=== PATIENT | female | born 1950 | race Asian ===

== ENCOUNTER 2016-06-13 07:22 | Day surgery (SDC) | payer MEDICARE, OTHER ==
[~2016-06-13] VITALS: Ht 154.9 cm; Wt 48.1 kg
[~2016-06-13 07:22] MED LIST: 0.9% Sodium Chloride 1,000 ML IV SCH; Sodium Chloride LOK Flush 10 mL Syringe IV PRN; fentaNYL-PF 50 mCg/mL 2 mL Inj IVPUSH PRN
[2016-06-13 07:49] VITALS: BP 144/99; PULSE 81; RESP 14; O2SAT 100
[2016-06-13] MEDS ORDERED: CALC-762 PO (07:54)
[2016-06-13] MEDS ORDERED: SUMA5SPR NS (07:54)
[2016-06-13] MEDS ORDERED: ASPI-973 PO (07:54)
[2016-06-13] MEDS ORDERED: ALEN10TA5 PO (07:54)
[2016-06-13] MEDS ORDERED: AMT50T PO (07:54)
[2016-06-13] MEDS ORDERED: MULT-666 PO (07:54)
[2016-06-13 09:00] VITALS: BP 140/92; PULSE 68; RESP 16; O2SAT 100
--- NOTE | 2016-06-13 09:00 | PCM.ENDCOL ---
Colonoscopy Date of Service: Jun 13, 2016 Physician Chele Colbert MD Pre Procedure Diagnosis: Screening Post Procedure Dx & Findings: Hemorrhoids diverticuli Procedure Colonoscopy PROCEDURE IN DETAIL: Prep adequate Withdrawal time 9 minutes After unremarkable rectal examination the Olympus video colonoscope was inserted patient's anal canal and was advanced to cecum. Landmarks were identified including the ileocecal valve and appendiceal orifice. Scope was withdrawn systematically. Visualized colonic mucosa showed healthy shiny mucosa with normal healthy-appearing vasculature. Patient had multiple diverticula in the sigmoid and the right colon. There were isolated diverticula in between. Sizes were small to large. In the rectum retroflexion was done which showed hemorrhoids. Anal canal was inspected carefully on the way out and hemorrhoids noted. Impression Diverticuliti Hemorrhoids Recommendation Repeat colonoscopy in 10 years if there is no family or personal history of colon polyp or cancer. Diverticular diet Presedation Assessment Risks and Benefits Informed consent was obtained from the patient after all risks and benefits including but not limited to drug reaction, infection, pain, bleeding, perforation, as well as alternatives were discussed. Patient monitoring Continuous pulse oximetry, cardiac monitoring, blood pressure monitoring, IV access, and oxygen at 2L per nasal cannula. Periprocedural Fentanyl: Fentanyl 75mcg Incrementally Midazolam: Midazolam 3mg Incrementally Complications There were no periprocedural complications identified. Post Procedure Plan Post Procedure Recommendations 1. Restrict activities today. 2. Resume normal activities in the morning. 3. Resume medications. 4. Patient informed of normal post procedure side effects as bloating, drowsiness, blood streaking in the stool. 5. average risk CRCS. If colon polyps come back as: -Hyperplastic- can repeat colonoscopy in 10 years -Tubular adenoma- repeat colonoscopy in 5 years -Tubulovillous/villous adenoma- repeat colonoscopy in 3 years -If any dysplasia- return to clinic as soon as possible 6. Please don't hesitate to call me with any questions. Chele Colbert MD Jun 13, 2016 09:00
[2016-06-13 09:10] VITALS: BP 128/82; PULSE 68; RESP 16; O2SAT 100
[2016-06-13 09:20] VITALS: BP 133/80; PULSE 63; RESP 16; O2SAT 100
== END 2016-06-13 23:59 | disposition home or self-care (01) ==
LOC: END 07:22
PROVIDERS: ATTEND Internal Medicine
DX: Z12.11 Encounter for screening for malignant neoplasm of colon (principal); K57.30 Diverticulosis of large intestine without perforation or abscess without bleeding; K64.8 Other hemorrhoids; G43.909 Migraine, unspecified, not intractable, without status migrainosus; M81.0 Age-related osteoporosis without current pathological fracture; Z90.710 Acquired absence of both cervix and uterus; Z79.82 Long term (current) use of aspirin
CPT/HCPCS: G0121; J7030